=== PATIENT | female | born 1985 | race Caucasian/White ===

== ENCOUNTER 2025-04-20 13:05 | Outpatient (CLI) | payer OTHER, SELFPAY | END 2025-04-20 13:06 | disposition home or self-care (01) | LOC: NFLDREF 04-24 11:10 | PROVIDERS: Visit Provider Surgery | DX: Z51.81 Encounter for therapeutic drug level monitoring (principal) | CPT/HCPCS: 84132 ==

== ENCOUNTER 2025-06-29 06:05 | Day surgery (SDC) | payer OTHER, SELFPAY ==
[2025-06-29] VITALS (8 sets, daily range): BP systolic 106–134; BP diastolic 61–85; PULSE 64–78; RESP 16; TEMP 36.8; O2SAT 95–99; BMI 21.7
[2025-06-29] MEDS: SODIUM CHLORIDE 0.9 % (FLUSH) 10 ML SYRINGE IVF (06:30)
[2025-06-29] MEDS: LACTATED RINGERS 1000 ML 1,000 ML 100 ML IV (06:30)
--- NOTE | 2025-06-29 07:34 | W.PM.H&PU ---
History & Physical Update History & Physical Update H&P Reviewed and patient assessed: No changes noted
--- NOTE | 2025-06-29 07:35 | P.GSOP_ITS ---
Operative Note Date of procedure: 06/29/25 Pre-op diagnosis: Umbilical hernia Post-op diagnosis: Same Indications: The patient is a 39 year-old female with an umbilical hernia for the past s everal years. She had been waiting to have it repaired until she had completed childbearing. She has become increasingly symptomatic and after discussion of options, has elected to proceed with repair. Procedure Description: After discussing the risks and benefits of the procedure, the patient signed informed consent.? The operative site was marked and the patient was brought to the operating room and placed on the operating table in supine position.? Care was taken to pad the patient's pressure points.?? The patient was then given sedation by anesthesia.?? The operative site was then prepped and draped in the usual sterile fashion.? A time-out was then performed. Local anesthetic was injected into the fascia, skin and subcutaneous tissues. A curvilinear incision was made just below the umbilicus. Dissection was carried down into the subcutaneous tissue using cautery. The hernia sac was encountered and care was taken to not enter it. Dissection was taken down to the fascia, and the umbilical stalk was carefully dissected off of the hernia sac. Once the hernia sac was dissected out circumferentially, it was reduced. The fascial ed ges were then cleared circumferentially. The hernia was slightly over 1 cm but not big enough to permit a finger tip, therefore the decision was made to close this primarily. 0 0 Nurolon suture was used to close the fascia in a [id number] fashion. Additional interrupted sutures were used to tack down the fascial edge inferiorly. The umbilicus was reapproximated to the fascia. The skin was then closed with running absorbable suture. A sterile dressing was then applied. ? The patient was then woken and transported to the recovery area in stable condition. ? The patient tolerated the procedure well. Findings: Approximately 1 cm umbilical hernia Surgeon: Linda Jorgensen MD Estimated blood loss (mL): 1 Condition: stable Disposition: same day
[2025-06-29] MEDS: BUPIVACAINE 0.25% 30 ML INJECTION (07:42)
[2025-06-29] MEDS: LIDOCAINE 1 % PF 30 ML INJECTION (08:33)
--- NOTE | 2025-06-29 08:41 | P.ANES_ITS ---
Anesthesia Charges Start Date/Time Anesthesia Start Date: 06/29/25 Anesthesia Start Time: 07:30 Stop Date/Time Anesthesia Stop Date: 06/29/25 Anesthesia Stop Time: 08:38 Coding CPT Codes CPT Codes: ANESTH REPAIR OF HERNIA - 47292 ([id number]) P1 - NORMAL HEALTHY PATIENT, QX - REGISTERED MIDWIFE MARGARETH W/ MED DIRECTION, QK - LABORER STORES 2-4 CNCRNT ANES PROC
--- NOTE | 2025-06-29 08:41 | W.ANESCHARGE ---
Anesthesia Charges Start Date/Time Anesthesia Start Date: 06/29/25 Anesthesia Start Time: 07:30 Stop Date/Time Anesthesia Stop Date: 06/29/25 Anesthesia Stop Time: 08:38 Coding CPT Codes CPT Codes: ANESTH REPAIR OF HERNIA - 40681 ([id number]) P1 - NORMAL HEALTHY PATIENT, QX - VENETIAN BLIND MECHANIC MARGARETH W/ MED DIRECTION, QK - SAS ANALYST 2-4 CNCRNT ANES PROC
--- NOTE | 2025-06-29 10:25 | P.ANES_ITS ---
Anesthesia Charges Start Date/Time Anesthesia Start Date: 06/29/25 Anesthesia Start Time: 07:30 Stop Date/Time Anesthesia Stop Date: 06/29/25 Anesthesia Stop Time: 08:38 Coding CPT Codes CPT Codes: ANESTH REPAIR OF HERNIA - 34688 ([id number]) P1 - NORMAL HEALTHY PATIENT, QK - CABIN CLEANER 2-4 CNCRNT ANES PROC, QX - MANAGER BUSINESS INTELLIGENCE SVEliecer W/ MED DIRECTION
--- NOTE | 2025-06-29 10:25 | W.ANESCHARGE ---
Anesthesia Charges Start Date/Time Anesthesia Start Date: 06/29/25 Anesthesia Start Time: 07:30 Stop Date/Time Anesthesia Stop Date: 06/29/25 Anesthesia Stop Time: 08:38 Coding CPT Codes CPT Codes: ANESTH REPAIR OF HERNIA - 04786 ([id number]) P1 - NORMAL HEALTHY PATIENT, QK - DRIVABILITY TECHNICIAN 2-4 CNCRNT ANES PROC, QX - ASSOCIATE PASTOR SVEliecer W/ MED DIRECTION
== END 2025-06-29 09:45 | disposition home or self-care (01) ==
PROVIDERS: Visit Provider Surgery
PROC: (CPT 49591; principal; 2025-06-29 07:30)
DX: K42.9 Umbilical hernia without obstruction or gangrene (principal)
CPT/HCPCS: 49591; 00830; J0665; J0690; J1100; J1885; J2003; J2250; J2405; J2704; J3010; J3490; J7120